=== PATIENT | male | born 1935 | race Caucasian/White ===

== ENCOUNTER 2017-07-23 07:14 | Emergency (ER) | payer MEDICARE, BC ==
[2017-07-23 07:24] VITALS: TEMP 97
[2017-07-23] MEDS ORDERED: DIPH,PERTUS(ACELL)TETVAC-LF 0.5 ML VIAL IM ONE (07:47)
--- NOTE | 2017-07-23 07:49 | ED ---
General Adult HPI - General Chief complaint: Fall Stated complaint: fall Time Seen by Provider: 07/23/17 07:20 Source: patient, RN notes reviewed Mode of arrival: wheelchair Limitations: no limitations - History of Present Illness Initial comments: This is an 81-year-old male who presents emergency department because he fell off the couch and hit his head on the corner of a dresser. Patient has a laceration to the posterior aspect of the scalp. Patient also is on Xarelto. Patient denies any loss of consciousness or any neck pain. Patient denies any numbness weakness. Patient denies any other injury at this time. Patient states he had his foot tangled up in the sheets. Caregiver states she was a little bit confused at first but that is not atypical for this patient. She states currently he is at his baseline. Patient denies any chest pain palpitations difficulty breathing or shortness of breath. - Related Data Allergies Allergy/AdvReac Type Severity Reaction Status Date / Time clarithromycin Allergy Swelling Verified 07/23/17 07:24 pregabalin [From Lyrica] Allergy Rash/Hives Verified 07/23/17 07:24 trichloroacetic acid Allergy Rash/Hives Verified 07/23/17 07:24 Review of Systems ROS Statement: Those systems with pertinent positive or pertinent negative responses have been documented in the HPI. ROS Other: All systems not noted in ROS Statement are negative. Past Medical History Past Medical History: Atrial Fibrillation, Dementia History of Any Multi-Drug Resistant Organisms: None Reported Past Surgical History: Hernia Repair Past Psychological History: No Psychological Hx Reported Smoking Status: Never smoker Past Alcohol Use History: None Reported Past Drug Use History: None Reported General Exam - General Exam Comments Initial Comments: GENERAL: Patient is well-developed and well-nourished. Patient is nontoxic and well- hydrated and is in mild distress. ENT: Neck is soft and supple. No significant lymphadenopathy is noted. Oropharynx is clear. Moist mucous membranes. Neck has full range of motion without eliciting any pain. EYES: The sclera were anicteric and conjunctiva were pink and moist. Extraocular movements were intact and pupils were equal round and reactive to light. Eyelids were unremarkable. PULMONARY: Unlabored respirations. Good breath sounds bilaterally. No audible rales rhonchi or wheezing was noted. CARDIOVASCULAR: There is a regular rate and rhythm without any murmurs gallops or rubs. ABDOMEN: Soft and nontender with normal bowel sounds. No palpable organomegaly was noted. There is no palpable pulsatile mass. SKIN: Patient has a laceration approximately 3/2 cm on the posterior aspect of his scalp a little more on the left than the right NEUROLOGIC: Patient is alert and oriented 2. Cranial nerves II through XII are grossly intact. Motor and sensory are also intact. Normal speech, volume and content. Symmetrical smile. MUSCULOSKELETAL: Normal extremities with adequate strength and full range of motion. LYMPHATICS: No significant lymphadenopathy is noted PSYCHIATRIC: Normal psychiatric evaluation. Normal interpersonal interactions appears functionally intact in deals appropriately with others. No signs of depression. No signs of anxiety. Limitations: no limitations Course Vital Signs 07/23/17 07/23/17 07:20 08:58 Temperature 97.0 F L Pulse Rate 78 68 Respiratory 18 18 Rate Blood Pressure 132/64 158/77 O2 Sat by Pulse 96 98 Oximetry Procedures - Laceration Laceration #1 Consent Obtained: verbal consent Indication: laceration Site: scalp Description: linear Depth: simple, single layer Anesthetic Used: lidocaine 1% Anesthesia Technique: local infiltration Pre-repair: wound explored Size of Sutures: other (I used 7 giselle to close the wound) Complications: pain Patient Tolerated Procedure: well Medical Decision Making - Medical Decision Making CT of the brain and C-spine showed no acute abnormality. Chest x-ray shows no acute abnormality. Disposition Clinical Impression: Fall, Scalp laceration, Head injury Disposition: HOME SELF-CARE Instructions: Head Injury (ED) Additional Instructions: Patient is to get the giselle removed in 7 days Referrals: Gurinder Partida MD [Primary Care Provider] - 1-2 days Time of Disposition: 10:05
--- NOTE | 2017-07-23 08:29 | CT ---
EXAMINATION TYPE: CT brain glen martinez DATE OF EXAM: 07/23/2017 COMPARISON: NONE HISTORY: Fall, head injury CT DLP: DLP brain 1017.9 and Cervical 351.7 mGycm Automated exposure control for dose reduction was used. TECHNIQUE: CT scan of the head and cervical spine are performed without contrast. FINDINGS: BRAIN: There are generalized changes of sulcal prominence and ventriculomegaly, compatible with atrop hic change. There is diffuse periventricular white matter lucency, compatible with chronic white benjy er ischemic change. There is a tiny 1.5 mm high-density lesion in the anterior aspect of the third ve ntricle at the level of the foramen of Monro on the right. This may represent a tiny colloid cyst. Th ere is no associated hydrocephalus. There is no mass effect, midline shift or intracranial blood. There is a 7.4 mm retention cyst or polyp involving the lateral aspect of the left maxillary sinus. T here is minimal mucoperiosteal disease involving the posterior ethmoid air cells on the left. No depr essed skull fracture is seen. IMPRESSION: 1. NO ACUTE INTRACRANIAL ABNORMALITY. 2. ATROPHIC CHANGE. 3. CHRONIC WHITE MATTER ISCHEMIC CHANGE. 4. I COULD NOT EXCLUDE A TINY COLLOID CYST IN THE ANTERIOR ASPECT OF THE THIRD VENTRICLE WITHOUT ASSO CIATED HYDROCEPHALUS. CERVICAL SPINE: There are emphysematous changes within the lungs. There is mild apical scarring prese nt bilaterally. There is some shotty cervical adenopathy. No pathologically enlarged lymph nodes are seen. There is mild spondylolisthesis of C5 on C6. Alignment is otherwise maintained. Atlantoaxial relation ships are normal. There is degenerative disc disease and hypertrophic spondylosis at C5-6 and C6-7. There is uncoverteb ral joint disease and facet arthropathy. No definite protrusion is seen. No fracture is identified. There is a small amount of subcutaneous emphysema over the left upper chest. A definite associated ri b fracture is not seen. IMPRESSION: 1. NO ACUTE OSSEOUS LESION. 2. DEGENERATIVE CHANGE. 3. TINY AMOUNT OF SUBCUTANEOUS EMPHYSEMA OVER THE LEFT UPPER CHEST.
[2017-07-23] MEDS ORDERED: LIDOCAINE/EPINEPHR/TETRACAINE 5 ML BOTTLE TOPICAL ONE (08:31)
--- NOTE | 2017-07-23 09:28 | XR ---
EXAMINATION TYPE: XR chest 2V DATE OF EXAM: 07/23/2017 HISTORY: Difficulty breathing . REFERENCE: Previous study dated 04/12/2013. FINDINGS: There has been a midline sternotomy and valvular replacement. Lung volumes are prominent. Heart size upper limits of normal. The lungs are clear. Pleural spaces ar e clear. IMPRESSION: 1. COPD. 2. BORDERLINE CARDIOMEGALY.
[2017-07-23 10:16] VITALS: BP 173/75; PULSE 70; RESP 16
== END 2017-07-23 10:16 | disposition home or self-care (01) ==
LOC: EC 07:14
DX: S01.01XA Laceration without foreign body of scalp, initial encounter (principal); I48.91 Unspecified atrial fibrillation; Z23 Encounter for immunization; Z88.1 Allergy status to other antibiotic agents; Z88.8 Allergy status to other drugs, medicaments and biological substances; Z79.01 Long term (current) use of anticoagulants; W08.XXXA Fall from other furniture, initial encounter
CPT/HCPCS: 12001; 70450; 71020; 72125; 90471; 90715; 99283

== ENCOUNTER 2018-11-29 21:54 | Inpatient (IN) | payer BC, MEDICARE ==
[2018-11-29] MEDS ORDERED: SODIUM CHLORIDE 0.9% 500 ML 500 ML IV ONE (22:41)
--- NOTE | 2018-11-29 22:58 | XR ---
EXAMINATION TYPE: XR chest 2V DATE OF EXAM: 11/29/2018 COMPARISON: 07/23/2017 HISTORY: Dementia TECHNIQUE: Frontal and lateral views of the chest are obtained. FINDINGS: There is no heart failure nor confluent pneumonic infiltrate. Thoracic aorta is atheromato us. There are sternal wires. There are chest leads. There is cardiac valve prosthesis. Bony thorax is intact. There is some linear density at the left cardiac border. There are small linear density at t he right lung base. IMPRESSION: Bilateral patchy atelectasis is new compared to last exam. No heart failure.
[2018-11-29 22:59] LABS: Basophils % (A) 0 %; Eosinophils % (A) 0 %; Lymphocytes # (A) 0.8 k/uL (1.0-4.8); Lymphocytes % (A) 9 %; MCH 32.8 pg (25.0-35.0); MCHC 31.7 g/dL (31.0-37.0); MCV 103.6 fL (80.0-100.0); Macrocytosis Slight; Mean Platelet Volume 7.4; Monocytes # (A) 0.8 k/uL (0-1.0); Monocytes % (A) 9 %; Neutrophils # (A) 6.9 k/uL (1.3-7.7); Neutrophils % (A) 79 %; Platelet Count 216 k/uL (150-450); RBC 3.96 m/uL (4.30-5.90); RDW 13.3 % (11.5-15.5); WBC 8.6 k/uL (3.8-10.6)
[2018-11-29 23:05] LABS: Albumin 3.7 g/dL (3.5-5.0); Calcium 9.2 mg/dL (8.4-10.2); Potassium 4.3 mmol/L (3.5-5.1); Total Bilirubin 0.7 mg/dL (0.2-1.3); Total Protein 6.6 g/dL (6.3-8.2)
[2018-11-29 23:06] LABS: INR 0.9 (<1.2); Partial Thromboplastin Time 23.8 sec (22.0-30.0); Prothrombin Time 10.1 sec (9.0-12.0)
[2018-11-29 23:08] LABS: Glucose,Whole Blood 130 mg/dL (75-99)
--- NOTE | 2018-11-29 23:24 | ED ---
Altered Mental Status HPI - General Chief Complaint: Altered Mental Status Stated Complaint: Altered Mental Status Time Seen by Provider: 11/29/18 22:39 Source: patient, EMS, Caregiver Mode of arrival: EMS Limitations: altered mental status - History of Present Illness Initial Comments: This patient is an 83-year-old man who comes to be evaluated for altered mental status. The patient is not able to give any history. The history I obtained is from the caregiver, who states that for the past day the patient has not been acting like his usual self. She states that at baseline, he is demented, and is resistant to staff at the home dressing him. The caregiver states that he is usually "combative." She states that today he has just been sitting and did not resist when they attempted to dress him. He was sleeping more. The patient was not giving any complaints, but they state that he is not very verbal at baseline. MD Complaint: altered mental status, decreased responsiveness Onset/Timin -: days(s) Consistency of Symptoms: constant - Related Data Home Medications Medication Instructions Recorded Confirmed ALPRAZolam [Xanax] 0.5 mg PO BID@1200,1700 11/29/18 11/29/18 Furosemide [Lasix] 20 mg PO DAILY@0800 11/29/18 11/29/18 QUEtiapine [SEROquel] 100 mg PO HS@1700 11/29/18 11/29/18 Rivaroxaban [Xarelto] 20 mg PO DAILY@0800 11/29/18 11/29/18 Sertraline [Zoloft] 25 mg PO DAILY@0800 11/29/18 11/29/18 risperiDONE [RisperDAL] 5 mg PO BID@0800,1700 11/29/18 11/29/18 traZODone HCL [Desyrel] 200 mg PO HS@1700 11/29/18 11/29/18 Allergies Allergy/AdvReac Type Severity Reaction Status Date / Time clarithromycin Allergy Swelling Verified 11/29/18 22:05 pregabalin [From Lyrica] Allergy Rash/Hives Verified 11/29/18 22:05 trichloroacetic acid Allergy Rash/Hives Verified 11/29/18 22:05 Review of Systems ROS Statement: Those systems with pertinent positive or pertinent negative responses have been documented in the HPI. ROS Other: All systems not noted in ROS Statement are negative. Limitations: ROS unobtainable due to patients medical condition Past Medical History Past Medical History: Atrial Fibrillation, Dementia History of Any Multi-Drug Resistant Organisms: None Reported Past Surgical History: Hernia Repair Past Psychological History: No Psychological Hx Reported Smoking Status: Never smoker Past Alcohol Use History: None Reported Past Drug Use History: None Reported General Exam Limitations: altered mental status General appearance: alert Head exam: Present: atraumatic, normocephalic Eye exam: Present: PERRL ENT exam: Present: mucous membranes dry Neck exam: Present: normal inspection, full ROM. Absent: tenderness Respiratory exam: Present: rhonchi. Absent: respiratory distress, wheezes, rales, stridor, chest wall tenderness, accessory muscle use, decreased breath sounds, prolonged expiratory Cardiovascular Exam: Present: regular rate, normal rhythm, normal heart sounds. Absent: systolic murmur, diastolic murmur, rubs, gallop GI/Abdominal exam: Present: soft, tenderness (There is some mild generalized tenderness without rebound or guarding), diminished bowel sounds. Absent: distended, guarding, rebound, rigid, mass Extremities exam: Present: normal inspection, normal capillary refill. Absent: pedal edema, calf tenderness Back exam: Present: normal inspection. Absent: CVA tenderness (R), CVA tenderness (L) Neurological exam: Present: alert, other (Patient is not cooperative with the neurologic exam, however there is no obvious focal deficit. The patient does appear to be moving 4 extremities.) Skin exam: Present: warm, dry, intact, normal color. Absent: rash Course Vital Signs 11/29/18 11/29/18 11/30/18 21:56 23:32 00:00 Temperature 98.2 F 98.5 F Pulse Rate 89 65 90 Respiratory 22 18 18 Rate Blood Pressure 124/73 114/66 135/73 O2 Sat by Pulse 98 97 97 Oximetry 11/30/18 11/30/18 02:00 03:00 Temperature 98.3 F 98.3 F Pulse Rate 85 76 Respiratory 20 18 Rate Blood Pressure 135/73 133/70 O2 Sat by Pulse 97 97 Oximetry Medical Decision Making - Lab Data Result diagrams: 11/29/18 22:18 11/29/18 22:18 Lab Results 11/29/18 11/29/18 11/29/18 Range/Units 22:18 22:18 22:18 WBC 8.6 (3.8-10.6) k/uL RBC 3.96 L (4.30-5.90) m/uL Hgb 13.0 (13.0-17.5) gm/dL Hct 41.0 (39.0-53.0) % MCV 103.6 H (80.0-100.0) fL MCH 32.8 (25.0-35.0) pg MCHC 31.7 (31.0-37.0) g/dL RDW 13.3 (11.5-15.5) % Plt Count 216 (150-450) k/uL Neutrophils % 79 % Lymphocytes % 9 % Monocytes % 9 % Eosinophils % 0 % Basophils % 0 % Neutrophils # 6.9 (1.3-7.7) k/uL Lymphocytes # 0.8 L (1.0-4.8) k/uL Monocytes # 0.8 (0-1.0) k/uL Eosinophils # 0.0 (0-0.7) k/uL Basophils # 0.0 (0-0.2) k/uL Macrocytosis Slight PT (9.0-12.0) sec INR (<1.2) APTT (22.0-30.0) sec Sodium 141 (137-145) mmol/L Potassium 4.3 (3.5-5.1) mmol/L Chloride 105 (98-107) mmol/L Carbon Dioxide 29 (22-30) mmol/L Anion Gap 7 mmol/L BUN 23 H (9-20) mg/dL Creatinine 1.31 H (0.66-1.25) mg/dL Est GFR (CKD-EPI)AfAm 58 (>60 ml/min/1.73 sqM) Est GFR (CKD-EPI)NonAf 51 (>60 ml/min/1.73 sqM) Glucose 136 H (74-99) mg/dL POC Glucose (mg/dL) (75-99) mg/dL POC Glu Firmware Manager ID Plasma Lactic Acid Scotty (0.7-2.0) mmol/L Calcium 9.2 (8.4-10.2) mg/dL Total Bilirubin 0.7 (0.2-1.3) mg/dL AST 24 (17-59) U/L ALT 20 L (21-72) U/L Alkaline Phosphatase 65 (38-126) U/L Total Creatine Kinase 197 H (55-170) U/L CK-MB (CK-2) 2.2 (0.0-2.4) ng/mL CK-MB (CK-2) Rel Index 1.1 Troponin I 0.016 (0.000-0.034) ng/mL Total Protein 6.6 (6.3-8.2) g/dL Albumin 3.7 (3.5-5.0) g/dL Urine Color Urine Appearance (Clear) Urine pH (5.0-8.0) Ur Specific Holstein (1.001-1.035) Urine Protein (Negative) Urine Glucose (UA) (Negative) Urine Ketones (Negative) Urine Blood (Negative) Urine Nitrite (Negative) Urine Bilirubin (Negative) Urine Urobilinogen (<2.0) mg/dL Ur Leukocyte Esterase (Negative) Urine Opiates Screen (NotDetected) Ur Oxycodone Screen (NotDetected) Urine Methadone Screen (NotDetected) Ur Propoxyphene Screen (NotDetected) Ur Barbiturates Screen (NotDetected) U Tricyclic Antidepress (NotDetected) Ur Phencyclidine Scrn (NotDetected) Ur Amphetamines Screen (NotDetected) U Methamphetamines Scrn (NotDetected) U Benzodiazepines Scrn (NotDetected) Urine Cocaine Screen (NotDetected) U Marijuana (THC) Screen (NotDetected) 11/29/18 11/29/18 11/29/18 Range/Units 22:18 22:58 23:12 WBC (3.8-10.6) k/uL RBC (4.30-5.90) m/uL Hgb (13.0-17.5) gm/dL Hct (39.0-53.0) % MCV (80.0-100.0) fL MCH (25.0-35.0) pg MCHC (31.0-37.0) g/dL RDW (11.5-15.5) % Plt Count (150-450) k/uL Neutrophils % % Lymphocytes % % Monocytes % % Eosinophils % % Basophils % % Neutrophils # (1.3-7.7) k/uL Lymphocytes # (1.0-4.8) k/uL Monocytes # (0-1.0) k/uL Eosinophils # (0-0.7) k/uL Basophils # (0-0.2) k/uL Macrocytosis PT 10.1 (9.0-12.0) sec INR 0.9 (<1.2) APTT 23.8 (22.0-30.0) sec Sodium (137-145) mmol/L Potassium (3.5-5.1) mmol/L Chloride (98-107) mmol/L Carbon Dioxide (22-30) mmol/L Anion Gap mmol/L BUN (9-20) mg/dL Creatinine (0.66-1.25) mg/dL Est GFR (CKD-EPI)AfAm (>60 ml/min/1.73 sqM) Est GFR (CKD-EPI)NonAf (>60 ml/min/1.73 sqM) Glucose (74-99) mg/dL POC Glucose (mg/dL) 130 H (75-99) mg/dL POC Glu Firmware Manager ID Jose Garcia Plasma Lactic Acid Scotty (0.7-2.0) mmol/L Calcium (8.4-10.2) mg/dL Total Bilirubin (0.2-1.3) mg/dL AST (17-59) U/L ALT (21-72) U/L Alkaline Phosphatase (38-126) U/L Total Creatine Kinase (55-170) U/L CK-MB (CK-2) (0.0-2.4) ng/mL CK-MB (CK-2) Rel Index Troponin I (0.000-0.034) ng/mL Total Protein (6.3-8.2) g/dL Albumin (3.5-5.0) g/dL Urine Color Urine Appearance (Clear) Urine pH (5.0-8.0) Ur Specific Holstein (1.001-1.035) Urine Protein (Negative) Urine Glucose (UA) (Negative) Urine Ketones (Negative) Urine Blood (Negative) Urine Nitrite (Negative) Urine Bilirubin (Negative) Urine Urobilinogen (<2.0) mg/dL Ur Leukocyte Esterase (Negative) Urine Opiates Screen Not Detected (NotDetected) Ur Oxycodone Screen Not Detected (NotDetected) Urine Methadone Screen Not Detected (NotDetected) Ur Propoxyphene Screen Not Detected (NotDetected) Ur Barbiturates Screen Not Detected (NotDetected) U Tricyclic Antidepress Detected H (NotDetected) Ur Phencyclidine Scrn Not Detected (NotDetected) Ur Amphetamines Screen Not Detected (NotDetected) U Methamphetamines Scrn Not Detected (NotDetected) U Benzodiazepines Scrn Detected H (NotDetected) Urine Cocaine Screen Not Detected (NotDetected) U Marijuana (THC) Screen Not Detected (NotDetected) 11/29/18 11/29/18 Range/Units 23:12 23:12 WBC (3.8-10.6) k/uL RBC (4.30-5.90) m/uL Hgb (13.0-17.5) gm/dL Hct (39.0-53.0) % MCV (80.0-100.0) fL MCH (25.0-35.0) pg MCHC (31.0-37.0) g/dL RDW (11.5-15.5) % Plt Count (150-450) k/uL Neutrophils % % Lymphocytes % % Monocytes % % Eosinophils % % Basophils % % Neutrophils # (1.3-7.7) k/uL Lymphocytes # (1.0-4.8) k/uL Monocytes # (0-1.0) k/uL Eosinophils # (0-0.7) k/uL Basophils # (0-0.2) k/uL Macrocytosis PT (9.0-12.0) sec INR (<1.2) APTT (22.0-30.0) sec Sodium (137-145) mmol/L Potassium (3.5-5.1) mmol/L Chloride (98-107) mmol/L Carbon Dioxide (22-30) mmol/L Anion Gap mmol/L BUN (9-20) mg/dL Creatinine (0.66-1.25) mg/dL Est GFR (CKD-EPI)AfAm (>60 ml/min/1.73 sqM) Est GFR (CKD-EPI)NonAf (>60 ml/min/1.73 sqM) Glucose (74-99) mg/dL POC Glucose (mg/dL) (75-99) mg/dL POC Glu Firmware Manager ID Plasma Lactic Acid Scotty 1.8 (0.7-2.0) mmol/L Calcium (8.4-10.2) mg/dL Total Bilirubin (0.2-1.3) mg/dL AST (17-59) U/L ALT (21-72) U/L Alkaline Phosphatase (38-126) U/L Total Creatine Kinase (55-170) U/L CK-MB (CK-2) (0.0-2.4) ng/mL CK-MB (CK-2) Rel Index Troponin I (0.000-0.034) ng/mL Total Protein (6.3-8.2) g/dL Albumin (3.5-5.0) g/dL Urine Color Yellow Urine Appearance Clear (Clear) Urine pH 5.5 (5.0-8.0) Ur Specific Holstein 1.019 (1.001-1.035) Urine Protein Trace H (Negative) Urine Glucose (UA) Negative (Negative) Urine Ketones Negative (Negative) Urine Blood Negative (Negative) Urine Nitrite Negative (Negative) Urine Bilirubin Negative (Negative) Urine Urobilinogen <2.0 (<2.0) mg/dL Ur Leukocyte Esterase Negative (Negative) Urine Opiates Screen (NotDetected) Ur Oxycodone Screen (NotDetected) Urine Methadone Screen (NotDetected) Ur Propoxyphene Screen (NotDetected) Ur Barbiturates Screen (NotDetected) U Tricyclic Antidepress (NotDetected) Ur Phencyclidine Scrn (NotDetected) Ur Amphetamines Screen (NotDetected) U Methamphetamines Scrn (NotDetected) U Benzodiazepines Scrn (NotDetected) Urine Cocaine Screen (NotDetected) U Marijuana (THC) Screen (NotDetected) - EKG Data -: EKG Interpreted by Ny EKG shows normal: sinus rhythm, axis (Normal), intervals (Normal), QRS complexes (Normal), ST-T waves (Normal) Rate: normal (Rate 91 bpm) Interpretation: normal EKG Disposition Clinical Impression: Altered mental status Disposition: ADMITTED IP TO THIS [facility] Condition: Fair Referrals: Goran Dubois MD [Primary Care Provider] - 1-2 days
[2018-11-29 23:27] LABS: Creatine Kinase MB 2.2 ng/mL (0.0-2.4); Troponin I 0.016 ng/mL (0.000-0.034)
[2018-11-29 23:40] LABS: Appearance,Urine Clear (Clear); Bilirubin,Urine Negative (Negative); Blood,Urine Negative (Negative); Color,Urine Yellow; Glucose,Urine (UA) Negative (Negative); Ketones,Urine Negative (Negative); Leukocyte Esterase,Urine Negative (Negative); Nitrite,Urine Negative (Negative); PH, Urine 5.5 (5.0-8.0); Protein,Urine Trace (Negative); Specific Gravity,Urine 1.019 (1.001-1.035); Urobilinogen,Urine <2.0 mg/dL (<2.0)
[2018-11-29 23:54] LABS: Amphetamine Screen,Urine Not Detected (NotDetected); Cocaine Screen,Urine Not Detected (NotDetected); Opiate Screen,Urine Not Detected (NotDetected); Phencyclidine Screen,Urine Not Detected (NotDetected); Urn Cannabinoid Scrn Not Detected (NotDetected)
[2018-11-29 23:55] LABS: Barbiturate Screen,Urine Not Detected (NotDetected); Benzodiazepines Screen,Urine Detected (NotDetected); Methadone Screen, Urine Not Detected (NotDetected); Oxycodone Screen, Urine Not Detected (NotDetected); Tricyclic Antidepressant,Urine Detected (NotDetected)
--- NOTE | 2018-11-30 00:44 | CT ---
EXAMINATION TYPE: CT brain wo con DATE OF EXAM: 11/30/2018 COMPARISON: 07/23/2017 HISTORY: AMS CT DLP: 2088.4 mGycm Automated exposure control for dose reduction was used. FINDINGS: There is diffuse cerebral cortical atrophy. There is no mass effect nor midline shift. There is no si gn of intracranial hemorrhage. There is mild enlargement of the ventricles. The calvarium is intact. IMPRESSION: CEREBRAL ATROPHY. NO ACUTE INTRACRANIAL ABNORMALITY. MILD HYDROCEPHALUS. NO CHANGE COMPARED TO OLD EX AM.
--- NOTE | 2018-11-30 00:55 | CT ---
EXAMINATION TYPE: CT abdomen pelvis wo con DATE OF EXAM: 11/30/2018 COMPARISON: None HISTORY: abdominal pain CT DLP: 626.1 mGycm Automated exposure control for dose reduction was used. TECHNIQUE: Helical acquisition of images was performed from the lung bases through the pelvis. FINDINGS: There is some interstitial density at the lung bases consistent with scarring and subsegmental atelec tasis. There is no pleural effusion. There is no pericardial effusion. Gallbladder appears normal. Liver shows no focal defect. Spleen appears normal. There is no pancreati c mass. There are numerous bilateral renal parapelvic cysts. Ureters are not dilated. Abdominal aorta is atheromatous. There is no retroperitoneal adenopathy. Bladder distends smoothly. Prostate is enlarged and measures 5.5 cm. There is no inguinal hernia. The re is no free fluid in the pelvis. There is no sign of free air. There is no evidence of a bowel obst ruction. I see no mesenteric edema or adenopathy. There is a minimal L5-S1 spondylolisthesis with L5 spondylolysis. There is multilevel degenerative disc change in the lumbar spine. There is no compress ion fracture. There is no evidence of free air. IMPRESSION: SCARRING AND SUBSEGMENTAL ATELECTASIS AT THE LUNG BASES. ATHEROSCLEROTIC VASCULAR DISEASE. NO ACUTE A BNORMALITY SEEN WITHIN THE ABDOMEN AND PELVIS. LUMBAR SPONDYLOTIC CHANGES AND L5-S1 SPONDYLOLISTHESIS . THERE IS FACET ARTHROPATHY AND SPUR FORMATION WITH SOME SPINAL STENOSIS AT L3-4.
[2018-11-30] MEDS ORDERED: LEVOFLOXACIN 750 MG TAB PO STA (02:38)
[2018-11-30] MEDS ORDERED: NALOXONE 0.4 MG/ML 1 ML VIAL IV PRN (03:25)
[2018-11-30] MEDS: SODIUM CHLORIDE 0.9% 1,000 ML IV SCH ×2 (04:04→14:58)
[2018-11-30 04:25] VITALS: BMI 22.8
[2018-11-30] MEDS ORDERED: IPRATROPIUM-ALBUTEROL 3 ML NEB INHALATION PRN ×2 (18:16→22:49)
[2018-11-30] MEDS ORDERED: IPRATROPIUM-ALBUTEROL 3 ML NEB INHALATION SCH (20:00)
--- NOTE | 2018-11-30 20:37 | HP ---
HISTORY AND PHYSICAL I am covering for Dr. Dubois. CHIEF COMPLAINT: Change in mental status. HISTORY OF PRESENT ILLNESS: This 83-year-old gentleman with a past medical history of multiple medical problems, including atrial fibrillation, dementia, is living in an [facility] home. Apparently the patient had some change in mental status and the caregiver reported that the patient was not acting his usual self. At baseline this patient has dementia, but the patient is resistant being dressed and usually is combative. Currently the patient was just sitting and not resisting, so the staff was concerned and the patient was taken to [facility] and admitted for further evaluation and treatment. Chest x-ray showed some atelectasis/possible pneumonia. The patient was admitted for evaluation and treatment. His creatinine was found to be 1.31, indicating chronic kidney disease, stage III. There is no history of trauma. A detailed history cannot be taken from the patient, as mentioned earlier. Most of the history is taken from discussion with staff and review of the chart and discussion with the ER physician. PAST MEDICAL HISTORY: 1. History of atrial fibrillation. 2. Dementia. HOME MEDICATIONS: 1. Trazodone 200 mg p.o. at bedtime. 2. Risperdal 0.5 mg p.o. b.i.d. 3. Zoloft 25 mg p.o. daily. 4. Xarelto 20 mg p.o. daily. 5. Seroquel 100 mg at bedtime. 6. Lasix 20 mg p.o. daily. 7. Xanax 0.5 mg b.i.d. ALLERGIES: 1. CLARITHROMYCIN. 2. LYRICA. 3. TRICHLOROACETIC ACID. Family history, social history, review of systems could not be taken because of the change in mental status. No history of smoking per chart. PHYSICAL EXAMINATION: Patient is conscious, confused, nonverbal. Pulse is 63, blood pressure 179/87, respiration 12, temperature 98.3, pulse ox 94% on room air. HEENT: Conjunctivae normal. Oral mucosa moist. NECK: No jugular venous distention. No carotid bruit. No lymph node enlargement. CARDIOVASCULAR SYSTEM: S1, S2 muffled. RESPIRATORY SYSTEM: Breath sounds diminished at the bases. A few scattered rhonchi and crackles. ABDOMEN: Soft. Non-tender. No mass palpable. LEGS: No edema. No swelling. NERVOUS SYSTEM: Diffusely weak. JOINTS: No active deforming arthropathy. SKIN: No ulcer, rash, bleeding. LABS AT THIS TIME: WBC 8.6, hemoglobin 13, sodium 141, potassium 4.3, creatinine 1.31. ASSESSMENT: 1. Change in mental status with possible acute bilateral pneumonia, community-acquire, with acute on chronic metabolic encephalopathy. 2. History of dementia. 3. Increased creatinine with chronic kidney disease, stage III. 4. Atrial fibrillation. 5. History of hernia repair. 6. FULL CODE. RECOMMENDATIONS AND DISCUSSION: In this 83-year-old gentleman who presented with multiple complex medical issues, we will monitor the patient closely, continue the current management, continue with symptomatic treatment. I recommend broad-spectrum antibiotics, pulmonary consultation, bronchodilators. Resume the home medications. Prognosis is guarded because of multiple complex medical issues. Further recommendations to follow. Patient is FULL CODE at this time. A copy of this dictation is being forwarded to Dr. Dubois, who is the primary physician. MMODL / IJN: [id number] /
[2018-11-30] MEDS ORDERED: LEVOFLOXACIN 500MG-D5W PMX 500 MG in DEXTROSE/WATER 1 100ML.BAG IVPB SCH (21:00)
[2018-12-01] MEDS: SODIUM CHLORIDE 0.9% 1,000 ML IV SCH ×2 (01:27→09:48)
[2018-12-01] MEDS: IPRATROPIUM-ALBUTEROL 3 ML NEB INHALATION SCH ×3 (05:20→19:17)
[2018-12-01 07:52] LABS: Basophils % (A) 0 %; Eosinophils % (A) 1 %; HCT 39.3 % (39.0-53.0); HGB 12.3 gm/dL (13.0-17.5); Lymphocytes # (A) 0.8 k/uL (1.0-4.8); Lymphocytes % (A) 10 %; MCH 32.4 pg (25.0-35.0); MCHC 31.4 g/dL (31.0-37.0); MCV 103.2 fL (80.0-100.0); Macrocytosis Slight; Mean Platelet Volume 7.4; Monocytes # (A) 0.7 k/uL (0-1.0); Monocytes % (A) 10 %; Neutrophils # (A) 5.6 k/uL (1.3-7.7); Neutrophils % (A) 76 %; Platelet Count 210 k/uL (150-450); RBC 3.81 m/uL (4.30-5.90); RDW 13.1 % (11.5-15.5); WBC 7.4 k/uL (3.8-10.6)
[2018-12-01 08:02] LABS: Anion Gap 7 mmol/L; Blood Urea Nitrogen 16 mg/dL (9-20); Calcium 8.7 mg/dL (8.4-10.2); Carbon Dioxide 25 mmol/L (22-30); Chloride 108 mmol/L (98-107); Glucose 93 mg/dL (74-99); Potassium 4.4 mmol/L (3.5-5.1); Sodium 140 mmol/L (137-145)
[2018-12-01] MEDS: risperiDONE 2 MG TAB PO SCH ×3 (12:41→16:50)
[2018-12-01] MEDS: FUROSEMIDE 20 MG TAB PO SCH (12:43)
[2018-12-01] MEDS: SERTRALINE 25 MG TAB PO SCH (12:43)
[2018-12-01] MEDS: ALPRAZolam 0.5 MG TAB PO SCH ×2 (12:43→16:50)
[2018-12-01] MEDS: RIVAROXABAN 20 MG TAB PO SCH (12:43)
--- NOTE | 2018-12-01 15:16 | P.CNPUL ---
History of Present Illness Consult date: 12/01/18 Reason for consult: dyspnea, cough, pneumonia Chief complaint: Altered mental status confusion History of present illness: 83-year-old male who was seen evaluated examined on medical floor, she has been admitted to hospital with altered mental status unable to obtain it a history from the patient most of the data has been obtained from the chart, as per caregiver patient has not been feeling well was more confused with intermittent agitation and anxiety which is more than usual, patient has been admitted to Hospital for workup of altered mental status patient appeared to be dehydrated on arrival noted to have BUN/creatinine 23 and 1.31 of her renal functions have improved with gentle rehydration, chest x-ray suggestive bilateral patchy infiltrate the basis likely pneumonia computed tomography scan of the abdominal and pelvis failed to reveal any significant pathology except some BPH and lumbosacral spinal disease, computed tomography scan of the head is unremarkable Review of Systems ROS unobtainable: due to mental status All systems: negative Past Medical History Past Medical History: Atrial Fibrillation, Dementia History of Any Multi-Drug Resistant Organisms: None Reported Past Surgical History: Hernia Repair Past Anesthesia/Blood Transfusion Reactions: Unable to Obtain Past Psychological History: No Psychological Hx Reported Smoking Status: Never smoker Past Alcohol Use History: None Reported Past Drug Use History: None Reported Medications and Allergies Home Medications Medication Instructions Recorded Confirmed Type ALPRAZolam [Xanax] 0.5 mg PO BID@1200,1700 11/29/18 11/29/18 History Furosemide [Lasix] 20 mg PO DAILY@0800 11/29/18 11/29/18 History QUEtiapine [SEROquel] 100 mg PO HS@1700 11/29/18 11/29/18 History Rivaroxaban [Xarelto] 20 mg PO DAILY@0800 11/29/18 11/29/18 History Sertraline [Zoloft] 25 mg PO DAILY@0800 11/29/18 11/29/18 History risperiDONE [RisperDAL] 5 mg PO BID@0800,1700 11/29/18 11/29/18 History traZODone HCL [Desyrel] 200 mg PO HS@1700 11/29/18 11/29/18 History Allergies Allergy/AdvReac Type Severity Reaction Status Date / Time clarithromycin Allergy Swelling Verified 11/29/18 22:05 pregabalin [From Lyrica] Allergy Rash/Hives Verified 11/29/18 22:05 trichloroacetic acid Allergy Rash/Hives Verified 11/29/18 22:05 Physical Exam Vitals: Vital Signs Temp Pulse Pulse Resp BP Pulse Ox 12/01/18 14:27 98.7 F 80 14 157/68 97 12/01/18 12:30 80 16 12/01/18 12:25 82 16 12/01/18 07:20 98.4 F 73 14 130/70 97 12/01/18 05:29 80 12/01/18 05:20 80 11/30/18 23:00 99.0 F 90 18 170/79 98 11/30/18 20:44 99.2 F 86 16 176/83 97 Intake and Output 12/01/18 12/01/18 12/01/18 06:59 14:59 22:59 Intake Total 600 Balance 600 Intake: Intake, IV Titration 600 Amount Sodium Chloride 0.9% 1, 600 000 ml @ 75 mls/hr IV . [id number] [facility] Rx#:[id number] Other: Voiding Method Diaper Incontinent # Voids 1 2 Limitations: altered mental status General appearance: alert Head exam: Present: atraumatic, normocephalic Eye exam: Present: PERRL ENT exam: Present: mucous membranes dry Neck exam: Present: normal inspection, full ROM. Absent: tenderness Respiratory exam: Present: rhonchi. Absent: respiratory distress, wheezes, rales, stridor, chest wall tenderness, accessory muscle use, decreased breath sounds, prolonged expiratory Cardiovascular Exam: Present: regular rate, normal rhythm, normal heart sounds. Absent: systolic murmur, diastolic murmur, rubs, gallop GI/Abdominal exam: Present: soft, tenderness (There is some mild generalized tenderness without rebound or guarding), diminished bowel sounds. Absent: distended, guarding, rebound, rigid, mass Extremities exam: Present: normal inspection, normal capillary refill. Absent: pedal edema, calf tenderness Back exam: Present: normal inspection. Absent: CVA tenderness (R), CVA tenderness (L) Neurological exam: Present: alert, other (Patient is not cooperative with the neurologic exam, however there is no obvious focal deficit. The patient does appear to be moving 4 extremities.) Skin exam: Present: warm, dry, intact, normal color. Absent: rash Results - Laboratory Findings CBC and BMP: 12/01/18 07:05 12/01/18 07:05 PT/INR, D-dimer PT 10.1 sec (9.0-12.0) 11/29/18 22:18 INR 0.9 (<1.2) 11/29/18 22:18 Abnormal lab findings: Abnormal Labs 11/29/18 11/29/18 11/29/18 22:18 22:18 22:18 RBC 3.96 L Hgb MCV 103.6 H Lymphocytes # 0.8 L Chloride BUN 23 H Creatinine 1.31 H Glucose 136 H POC Glucose (mg/dL) ALT 20 L Total Creatine Kinase 197 H Urine Protein U Tricyclic Antidepress U Benzodiazepines Scrn 11/29/18 11/29/18 11/29/18 22:58 23:12 23:12 RBC Hgb MCV Lymphocytes # Chloride BUN Creatinine Glucose POC Glucose (mg/dL) 130 H ALT Total Creatine Kinase Urine Protein Trace H U Tricyclic Antidepress Detected H U Benzodiazepines Scrn Detected H 12/01/18 12/01/18 07:05 07:05 RBC 3.81 L Hgb 12.3 L MCV 103.2 H Lymphocytes # 0.8 L Chloride 108 H BUN Creatinine Glucose POC Glucose (mg/dL) ALT Total Creatine Kinase Urine Protein U Tricyclic Antidepress U Benzodiazepines Scrn - Diagnostic Findings Chest x-ray: report reviewed, image reviewed Assessment and Plan Assessment: Altered mental status with agitated behavior Bilateral basal pneumonia Metabolic encephalopathy Drug vascular volume depletion and dehydration Chronic dementia and is I'm is disease Chronic atrial fibrillation Plan: Broad-spectrum antibiotics Gentle rehydration Fall precautions Follow clinical course closely further recommendations pending plan of care as per clinical response of the patient We'll send urine for culture as well Time with Patient: Greater than 30
[2018-12-01] MEDS: QUEtiapine 100 MG TAB PO SCH (16:50)
[2018-12-01] MEDS: traZODone HCL 100 MG TAB PO SCH (16:50)
--- NOTE | 2018-12-01 17:55 | P.PN ---
Subjective Progress Note Date: 12/01/18 Progress note being dictated for Dr. Pace. Interval history: This is an 83-year-old male resident of an [facility], admitted with possible acute bilateral pneumonia, acute on chronic metabolic encephalopathy, acute on chronic renal failure in a patient with history of dementia and multiple other medical issues. Maintained on broad-spectrum IV antibiotics, nebulized bronchodilators. Afebrile, T-max 99.2, normal WBC. Gentle IV fluid hydration with renal function improving. Objective - Vital Signs Vital signs: Vital Signs Temp 98.7 F 12/01/18 14:27 Pulse 80 12/01/18 14:27 Resp 14 12/01/18 14:27 BP 157/68 12/01/18 14:27 Pulse Ox 97 12/01/18 14:27 Intake & Output 11/30/18 12/01/18 12/01/18 18:59 06:59 18:59 Intake Total 800 600 Balance 800 600 Intake: Intake, IV Titration 800 600 Amount Sodium Chloride 0.9% 1, 800 600 000 ml @ 75 mls/hr IV . [id number] [facility] Rx#:[id number] Other: Voiding Method Incontinent Diaper Diaper Incontinent Incontinent # Voids 1 1 2 - Exam PHYSICAL EXAM: VITAL SIGNS: As above GENERAL: Lying in bed, appears comfortable with no acute distress, confused, cooperative HEENT: Conjunctivae normal. eyes normal. NECK: No JVD. No thyroid enlargement. No LNs CARDIOVASCULAR: S1, S2 muffled. No murmur RESPIRATION: Breath sounds diminished in the bases. Occasional scattered rhonchi and crackles. ABDOMEN: Soft, nontender . No guarding. no masses palpable.Bowel sounds heard. LEGS: No edema. no swelling PSYCHIATRY: Alert and oriented -3, mood and affect normal. NERVOUS SYSTEM: Moves all 4 limbs. Diffuse weakness No focal deficits. Skin: no rash - Labs CBC & Chem 7: 12/01/18 07:05 12/01/18 07:05 Labs: Abnormal Lab Results - Last 24 Hours (Table) 12/01/18 12/01/18 Range/Units 07:05 07:05 RBC 3.81 L (4.30-5.90) m/uL Hgb 12.3 L (13.0-17.5) gm/dL MCV 103.2 H (80.0-100.0) fL Lymphocytes # 0.8 L (1.0-4.8) k/uL Chloride 108 H (98-107) mmol/L Assessment and Plan Assessment: -Change in mental status with acute bilateral pneumonia, community-acquired with acute on chronic metabolic encephalopathy -Chronic dementia, type unknown -Acute on chronic kidney disease, stage III, improving. -Chronic atrial fibrillation - Plan: Continue current medication regime ,monitoring and symptomatic treatment. Urine culture ordered. Continue on IV antibiotics, gentle IV fluid hydration. Assist with all meals. Follow closely with pulmonary. Further recommendations to follow. The impression and plan of care has been dictated as directed. : I performed a history and examination of this patient, discussed the same with the dictator. I agree with the dictator's note ,documented as a scribe. Any additional findings or plans will be noted.
[2018-12-01] MEDS ORDERED: LEVOFLOXACIN 500 MG TAB PO SCH (21:00)
[2018-12-02] MEDS: SODIUM CHLORIDE 0.9% 1,000 ML IV SCH ×2 (03:49→16:43)
[2018-12-02] MEDS: IPRATROPIUM-ALBUTEROL 3 ML NEB INHALATION SCH ×4 (07:56→18:58)
[2018-12-02 08:33] LABS: Basophils % (A) 0 %; Eosinophils % (A) 0 %; HCT 43.9 % (39.0-53.0); HGB 13.7 gm/dL (13.0-17.5); Lymphocytes # (A) 0.4 k/uL (1.0-4.8); Lymphocytes % (A) 3 %; MCH 32.1 pg (25.0-35.0); MCHC 31.2 g/dL (31.0-37.0); MCV 102.7 fL (80.0-100.0); Macrocytosis Slight; Mean Platelet Volume 7.2; Monocytes # (A) 0.6 k/uL (0-1.0); Monocytes % (A) 5 %; Neutrophils # (A) 10.7 k/uL (1.3-7.7); Neutrophils % (A) 91 %; Platelet Count 246 k/uL (150-450); RBC 4.28 m/uL (4.30-5.90); RDW 13.1 % (11.5-15.5); WBC 11.8 k/uL (3.8-10.6)
[2018-12-02 08:46] LABS: Anion Gap 7 mmol/L; Blood Urea Nitrogen 20 mg/dL (9-20); Calcium 9.1 mg/dL (8.4-10.2); Carbon Dioxide 25 mmol/L (22-30); Chloride 109 mmol/L (98-107); Glucose 125 mg/dL (74-99); Potassium 4.6 mmol/L (3.5-5.1); Sodium 141 mmol/L (137-145)
[2018-12-02] MEDS: RIVAROXABAN 20 MG TAB PO SCH (10:07)
[2018-12-02] MEDS: risperiDONE 2 MG TAB PO SCH ×2 (10:07→16:38)
[2018-12-02] MEDS: SERTRALINE 25 MG TAB PO SCH (10:07)
[2018-12-02] MEDS: FUROSEMIDE 20 MG TAB PO SCH (10:07)
[2018-12-02] MEDS: ALPRAZolam 0.5 MG TAB PO SCH ×2 (11:39→16:38)
[2018-12-02] MEDS: QUEtiapine 100 MG TAB PO SCH (16:38)
[2018-12-02] MEDS: traZODone HCL 100 MG TAB PO SCH (16:38)
--- NOTE | 2018-12-02 17:06 | XR ---
EXAMINATION TYPE: XR chest 1V portable DATE OF EXAM: 12/02/2018 CLINICAL HISTORY: Chest pain TECHNIQUE: Single frontal view of the chest is obtained. COMPARISON: None FINDINGS: There is no focal air space opacity, pleural effusion, or pneumothorax seen. The cardiac silhouette size is within normal limits. The osseous structures are intact. Postsurgical changes of the thorax are unchanged. IMPRESSION: No acute process. No significant interval change.
[2018-12-02] MEDS: LEVOFLOXACIN 500MG-D5W PMX 500 MG in DEXTROSE/WATER 1 100ML.BAG IVPB SCH (17:44)
--- NOTE | 2018-12-02 20:55 | PN ---
PROGRESS NOTE I am covering for Dr. Dubois. DATE OF SERVICE: 12/02/2018. HISTORY: This 83-year-old gentleman was admitted from [facility] home with change in mental status and acute bilateral pneumonia. The patient is rather ill, possibility of aspiration was considered. Dr. Matthew saw the patient from the Pulmonary point of view. He recommended to continue the current medications. Cultures negative so far. PAST MEDICAL HISTORY: Reviewed. REVIEW OF SYSTEMS: Could not be taken. CURRENT MEDICATIONS: Reviewed, include: 1. DuoNeb q.i.d. and p.r.n. 2. Xanax 0.5 t.i.d. 3. Lasix 20 mg. 4. Levaquin 500 mg daily. 5. Narcan 0.2 every 2h p.r.n. 6. Seroquel 500 mg p.o. b.i.d. 8. Xarelto 20 mg daily. 9. Zoloft 100 mg daily. PHYSICAL EXAM: Patient is alert, oriented x3, pulse 91, blood pressure 160/80, respirations 16, temperature 97.2, pulse ox 94% on room air. HEENT: Conjunctivae normal. NECK: Supple. CARDIOVASCULAR: S1 and S2 muffled. LUNGS: Breath sounds diminished at the bases. Bilateral scattered rhonchi and crackles. ABDOMEN: Soft, nontender. EXTREMITIES: Legs, no edema. NERVOUS SYSTEM: Diffusely weak. Tone is also increased. LABS: WBC 7.2, hemoglobin 13.7. ASSESSMENT: 1. Change in mental status with acute bilateral pneumonia, possibly aspiration with acute on chronic metabolic encephalopathy. 2. Chronic dementia, type unknown. 3. Acute on chronic kidney injury, improving. 4. Chronic atrial fibrillation. 5. History of hernia repair. RECOMMENDATIONS AND DISCUSSION: This 83-year-old gentleman presented with multiple medical issues. Monitor the patient closely. Continue the current management and symptomatic treatment. Otherwise recommend Pulmonary consultation with Dr. Matthew. Abdominal and pelvic CAT scan was done which showed scarring and subsegmental atelectasis in the bases. changes also noted. Prognosis guarded. Further recommendations to follow. MMODL / IJN: [id number] / MTDD
[2018-12-03] MEDS: IPRATROPIUM-ALBUTEROL 3 ML NEB INHALATION SCH ×3 (07:41→18:56)
[2018-12-03 08:27] LABS: Basophils % (A) 0 %; Eosinophils % (A) 0 %; HCT 42.6 % (39.0-53.0); HGB 13.3 gm/dL (13.0-17.5); Lymphocytes # (A) 0.8 k/uL (1.0-4.8); Lymphocytes % (A) 5 %; MCHC 31.1 g/dL (31.0-37.0); MCV 102.7 fL (80.0-100.0); Macrocytosis Slight; Mean Platelet Volume 7.2; Monocytes # (A) 1.1 k/uL (0-1.0); Monocytes % (A) 7 %; Neutrophils # (A) 13.3 k/uL (1.3-7.7); Neutrophils % (A) 86 %; Platelet Count 251 k/uL (150-450); RBC 4.15 m/uL (4.30-5.90); RDW 13.1 % (11.5-15.5); WBC 15.6 k/uL (3.8-10.6)
[2018-12-03 08:36] LABS: Calcium 9.1 mg/dL (8.4-10.2); Potassium 4.2 mmol/L (3.5-5.1)
[2018-12-03] MEDS: SODIUM CHLORIDE 0.9% 1,000 ML IV SCH ×2 (08:38→12:59)
--- NOTE | 2018-12-03 10:16 | P.PN ---
Subjective Progress Note Date: 12/02/18 (Late entry note) Principal diagnosis: Altered mental status with agitated behavior, bilateral basal pneumonia, metabolic encephalopathy, dehydration, chronic dementia, chronic atrial fibrillation 12/02/2018, patient seen eval reexamined during the rounds is still of intermittent agitated dementia mental status remains marginal labs reviewed medications reviewed, urine culture results are pending blood culture no growth so far 83-year-old male who was seen evaluated examined on medical floor, she has been admitted to hospital with altered mental status unable to obtain it a history from the patient most of the data has been obtained from the chart, as per caregiver patient has not been feeling well was more confused with intermittent agitation and anxiety which is more than usual, patient has been admitted to Hospital for workup of altered mental status patient appeared to be dehydrated on arrival noted to have BUN/creatinine 23 and 1.31 of her renal functions have improved with gentle rehydration, chest x-ray suggestive bilateral patchy infiltrate the basis likely pneumonia computed tomography scan of the abdominal and pelvis failed to reveal any significant pathology except some BPH and lumbosacral spinal disease, computed tomography scan of the head is unremarkable Objective - Vital Signs Vital signs: Vital Signs Temp 98.9 F 12/03/18 00:00 Pulse 79 12/03/18 00:00 Resp 18 12/03/18 00:00 BP 169/54 12/03/18 00:00 Pulse Ox 99 12/03/18 00:00 Intake & Output 12/02/18 12/03/18 12/03/18 18:59 06:59 18:59 Intake Total 600 200 Balance 600 200 Intake: IV 600 200 Sodium Chloride 0.9% 1, 600 200 000 ml @ 75 mls/hr IV . [id number] [facility] Rx#:[id number] Other: Voiding Method Diaper Incontinent # Voids 2 - Exam Limitations: altered mental status General appearance: alert Head exam: Present: atraumatic, normocephalic Eye exam: Present: PERRL ENT exam: Present: mucous membranes dry Neck exam: Present: normal inspection, full ROM. Absent: tenderness Respiratory exam: Present: rhonchi. Absent: respiratory distress, wheezes, rales, stridor, chest wall tenderness, accessory muscle use, decreased breath sounds, prolonged expiratory Cardiovascular Exam: Present: regular rate, normal rhythm, normal heart sounds. Absent: systolic murmur, diastolic murmur, rubs, gallop GI/Abdominal exam: Present: soft, tenderness (There is some mild generalized tenderness without rebound or guarding), diminished bowel sounds. Absent: distended, guarding, rebound, rigid, mass Extremities exam: Present: normal inspection, normal capillary refill. Absent: pedal edema, calf tenderness Back exam: Present: normal inspection. Absent: CVA tenderness (R), CVA tenderness (L) Neurological exam: Present: alert, other (Patient is not cooperative with the neurologic exam, however there is no obvious focal deficit. The patient does appear to be moving 4 extremities.) Skin exam: Present: warm, dry, intact, normal color. Absent: rash - Labs CBC & Chem 7: 12/03/18 07:28 12/03/18 07:28 Labs: Abnormal Lab Results - Last 24 Hours (Table) 12/03/18 12/03/18 Range/Units 07:28 07:28 WBC 15.6 H (3.8-10.6) k/uL RBC 4.15 L (4.30-5.90) m/uL MCV 102.7 H (80.0-100.0) fL Neutrophils # 13.3 H (1.3-7.7) k/uL Lymphocytes # 0.8 L (1.0-4.8) k/uL Monocytes # 1.1 H (0-1.0) k/uL Chloride 110 H (98-107) mmol/L Glucose 107 H (74-99) mg/dL Microbiology - Last 24 Hours (Table) 12/01/18 17:09 Urine Culture - Preliminary Urine,Catheterized 11/30/18 18:27 Blood Culture - Preliminary Blood No Growth after 48 hours Assessment and Plan Assessment: Altered mental status with agitated behavior Bilateral basal pneumonia Metabolic encephalopathy Intravascular volume depletion and dehydration Chronic dementia and is Alzheimer's disease Chronic atrial fibrillation Plan: Broad-spectrum antibiotics Gentle rehydration Fall precautions Follow clinical course closely further recommendations pending plan of care as per clinical response of the patient Follow-up on blood and urine for culture as well Long-term prognosis overall remains poor Time with Patient: Greater than 30
--- NOTE | 2018-12-03 10:19 | P.PN ---
Subjective Progress Note Date: 12/03/18 Principal diagnosis: Altered mental status with agitated behavior, bilateral basal pneumonia, metabolic encephalopathy, dehydration, chronic dementia, chronic atrial fibrillation 12/03/2018, patient seen eval examined during the rounds clinically patient remains unchanged he still have intermittent agitated dementia, labs reviewed medications reviewed, noted white cell count have gone up however chest x-ray and culture remains negative 12/02/2018, patient seen eval reexamined during the rounds is still of intermittent agitated dementia mental status remains marginal labs reviewed medications reviewed, urine culture results are pending blood culture no growth so far 83-year-old male who was seen evaluated examined on medical floor, she has been admitted to hospital with altered mental status unable to obtain it a history from the patient most of the data has been obtained from the chart, as per caregiver patient has not been feeling well was more confused with intermittent agitation and anxiety which is more than usual, patient has been admitted to Hospital for workup of altered mental status patient appeared to be dehydrated on arrival noted to have BUN/creatinine 23 and 1.31 of her renal functions have improved with gentle rehydration, chest x-ray suggestive bilateral patchy infiltrate the basis likely pneumonia computed tomography scan of the abdominal and pelvis failed to reveal any significant pathology except some BPH and lumbosacral spinal disease, computed tomography scan of the head is unremarkable Objective - Vital Signs Vital signs: Vital Signs Temp 98.9 F 12/03/18 00:00 Pulse 79 12/03/18 00:00 Resp 18 12/03/18 00:00 BP 169/54 12/03/18 00:00 Pulse Ox 99 12/03/18 00:00 Intake & Output 12/02/18 12/03/18 12/03/18 18:59 06:59 18:59 Intake Total 600 200 Balance 600 200 Intake: IV 600 200 Sodium Chloride 0.9% 1, 600 200 000 ml @ 75 mls/hr IV . [id number] [facility] Rx#:[id number] Other: Voiding Method Diaper Incontinent # Voids 2 - Exam Limitations: altered mental status General appearance: alert Head exam: Present: atraumatic, normocephalic Eye exam: Present: PERRL ENT exam: Present: mucous membranes dry Neck exam: Present: normal inspection, full ROM. Absent: tenderness Respiratory exam: Present: rhonchi. Absent: respiratory distress, wheezes, rales, stridor, chest wall tenderness, accessory muscle use, decreased breath sounds, prolonged expiratory Cardiovascular Exam: Present: regular rate, normal rhythm, normal heart sounds. Absent: systolic murmur, diastolic murmur, rubs, gallop GI/Abdominal exam: Present: soft, tenderness (There is some mild generalized tenderness without rebound or guarding), diminished bowel sounds. Absent: distended, guarding, rebound, rigid, mass Extremities exam: Present: normal inspection, normal capillary refill. Absent: pedal edema, calf tenderness Back exam: Present: normal inspection. Absent: CVA tenderness (R), CVA tenderness (L) Neurological exam: Present: alert, other (Patient is not cooperative with the neurologic exam, however there is no obvious focal deficit. The patient does appear to be moving 4 extremities.) Skin exam: Present: warm, dry, intact, normal color. Absent: rash - Labs CBC & Chem 7: 12/03/18 07:28 12/03/18 07:28 Labs: Abnormal Lab Results - Last 24 Hours (Table) 12/03/18 12/03/18 Range/Units 07:28 07:28 WBC 15.6 H (3.8-10.6) k/uL RBC 4.15 L (4.30-5.90) m/uL MCV 102.7 H (80.0-100.0) fL Neutrophils # 13.3 H (1.3-7.7) k/uL Lymphocytes # 0.8 L (1.0-4.8) k/uL Monocytes # 1.1 H (0-1.0) k/uL Chloride 110 H (98-107) mmol/L Glucose 107 H (74-99) mg/dL Microbiology - Last 24 Hours (Table) 12/01/18 17:09 Urine Culture - Preliminary Urine,Catheterized 11/30/18 18:27 Blood Culture - Preliminary Blood No Growth after 48 hours Assessment and Plan Assessment: Altered mental status with agitated behavior Bilateral basal pneumonia Metabolic encephalopathy Intravascular volume depletion and dehydration Chronic dementia and is Alzheimer's disease Chronic atrial fibrillation Plan: Broad-spectrum antibiotics Gentle rehydration Consider infectious disease consultation if the WBC continued to climb up as there is no source of infection appreciated currently except pneumonia for which x-ray reviewed which are remains stable Fall precautions Follow clinical course closely further recommendations pending plan of care as per clinical response of the patient Follow-up on blood and urine for culture as well Long-term prognosis overall remains poor Time with Patient: Greater than 30
[2018-12-03] MEDS: risperiDONE 2 MG TAB PO SCH ×2 (12:00→18:08)
[2018-12-03] MEDS: RIVAROXABAN 20 MG TAB PO SCH (12:00)
[2018-12-03] MEDS: SERTRALINE 25 MG TAB PO SCH (12:01)
[2018-12-03] MEDS: FUROSEMIDE 20 MG TAB PO SCH (12:04)
[2018-12-03] MEDS: ALPRAZolam 0.5 MG TAB PO SCH ×2 (12:04→18:08)
[2018-12-03] MEDS: LEVOFLOXACIN 500MG-D5W PMX 500 MG in DEXTROSE/WATER 1 100ML.BAG IVPB SCH (17:44)
[2018-12-03] MEDS: QUEtiapine 100 MG TAB PO SCH (18:08)
[2018-12-03] MEDS: traZODone HCL 100 MG TAB PO SCH (18:08)
[2018-12-03] MEDS: PIPERACILLIN-TAZOBACTAM 3.375 GM in SODIUM CHLORIDE 0.9% 100 ML IVPB SCH (19:32)
--- NOTE | 2018-12-03 19:38 | PN ---
PROGRESS NOTE DATE OF SERVICE: 12/03/2018 I am covering for Dr. Dubois This 83-year-old gentleman admitted with change in mental status, also with possible pneumonia. Dr. Matthew is following the patient. On broad-spectrum IV antibiotics. Aspiration suspected. The most recent chest CT did not show any acute changes. EXAM: Patient is confused. Pulse 92, blood pressure 119/60, respirations 16, T-max 100.2, pulse ox 94% on room air. HEENT: Conjunctivae normal. Oral mucosa moist. NECK: No jugular venous distention. No lymph node enlargement. CARDIOVASCULAR: S1, S2. RESPIRATORY: Diminished breath sounds muffled at the bases. Bilateral scattered rhonchi and crackles. ABDOMEN: Soft, nontender. No mass. LEGS: No swelling. NERVOUS SYSTEM: Diffusely weak. LABS: WBC 15.2, hemoglobin is 13.3, sodium 140, potassium 4.2. ASSESSMENT: 1. Change in mental status with acute bilateral pneumonia possibly aspiration with acute on chronic metabolic encephalopathy. 2. Continued fever. 3. Rule out aspiration dysphagia. 4. Chronic dementia, type unknown. 5. Acute on chronic kidney injury, improving. 6. Chronic atrial fibrillation. 7. History of hernia repair. RECOMMENDATIONS: Continue current management. continue to monitor, continue symptomatic treatment. Recommend add Zosyn to the current regimen. Closely follow with Pulmonary. Continue the bronchodilators. Guarded prognosis because of multiple complex medical issues. Further recommendations to follow. MMODL / IJN: [id number] /
[2018-12-04] MEDS: PIPERACILLIN-TAZOBACTAM 3.375 GM in SODIUM CHLORIDE 0.9% 100 ML IVPB SCH ×3 (03:08→15:31)
[2018-12-04] MEDS: IPRATROPIUM-ALBUTEROL 3 ML NEB INHALATION SCH ×2 (08:38→21:00)
[2018-12-04 09:37] LABS: Basophils % (A) 0 %; Eosinophils # (A) 0.1 k/uL (0-0.7); Eosinophils % (A) 1 %; HCT 40.8 % (39.0-53.0); HGB 12.9 gm/dL (13.0-17.5); Lymphocytes % (A) 10 %; MCH 32.5 pg (25.0-35.0); MCHC 31.6 g/dL (31.0-37.0); MCV 102.9 fL (80.0-100.0); Macrocytosis Slight; Mean Platelet Volume 7.1; Monocytes # (A) 0.7 k/uL (0-1.0); Monocytes % (A) 7 %; Neutrophils % (A) 80 %; Platelet Count 243 k/uL (150-450); RBC 3.97 m/uL (4.30-5.90); RDW 13.1 % (11.5-15.5)
[2018-12-04 09:39] LABS: Anion Gap 6 mmol/L; Blood Urea Nitrogen 20 mg/dL (9-20); Calcium 8.8 mg/dL (8.4-10.2); Carbon Dioxide 26 mmol/L (22-30); Chloride 110 mmol/L (98-107); Glucose 100 mg/dL (74-99); Potassium 3.6 mmol/L (3.5-5.1); Sodium 142 mmol/L (137-145)
[2018-12-04] MEDS: SODIUM CHLORIDE 0.9% 1,000 ML IV SCH ×2 (11:18→21:51)
[2018-12-04] MEDS: risperiDONE 2 MG TAB PO SCH ×2 (11:18→17:59)
[2018-12-04] MEDS: FUROSEMIDE 20 MG TAB PO SCH (11:18)
[2018-12-04] MEDS: RIVAROXABAN 20 MG TAB PO SCH (11:19)
[2018-12-04] MEDS: SERTRALINE 25 MG TAB PO SCH (11:19)
--- NOTE | 2018-12-04 12:51 | P.PN ---
Subjective Progress Note Date: 12/04/18 Principal diagnosis: Altered mental status with agitated behavior, bilateral basal pneumonia, metabolic encephalopathy, dehydration, chronic dementia, chronic atrial fibrillation 12/04/2018, patient seen eval examined during rounds clinically patient has been doing much better in terms of breathing cuff congestion shortness breath is improved patient is more calm and less combative, white cell count is down to within normal range, renal functions are normal, 12/03/2018, patient seen eval examined during the rounds clinically patient remains unchanged he still have intermittent agitated dementia, labs reviewed medications reviewed, noted white cell count have gone up however chest x-ray and culture remains negative, patient is being treated with broad-spectrum antibiotics, x-ray however remains stable 12/02/2018, patient seen eval reexamined during the rounds is still of intermittent agitated dementia mental status remains marginal labs reviewed medications reviewed, urine culture results are pending blood culture no growth so far 83-year-old male who was seen evaluated examined on medical floor, she has been admitted to hospital with altered mental status unable to obtain it a history from the patient most of the data has been obtained from the chart, as per caregiver patient has not been feeling well was more confused with intermittent agitation and anxiety which is more than usual, patient has been admitted to Hospital for workup of altered mental status patient appeared to be dehydrated on arrival noted to have BUN/creatinine 23 and 1.31 of her renal functions have improved with gentle rehydration, chest x-ray suggestive bilateral patchy infiltrate the basis likely pneumonia computed tomography scan of the abdominal and pelvis failed to reveal any significant pathology except some BPH and lumbosacral spinal disease, computed tomography scan of the head is unremarkable Objective - Vital Signs Vital signs: Vital Signs Temp 98.4 F 12/04/18 07:22 Pulse 84 12/04/18 07:22 Resp 16 12/04/18 07:22 BP 153/77 12/04/18 07:22 Pulse Ox 99 12/04/18 07:22 Intake & Output 12/03/18 12/04/18 12/04/18 18:59 06:59 18:59 Intake Total 607.5 1200 Balance 607.5 1200 Intake: IV 487.5 1200 Sodium Chloride 0.9% 1, 487.5 1200 000 ml @ 75 mls/hr IV . [id number] [facility] Rx#:[id number] Oral 120 Other: Voiding Method Diaper Diaper Incontinent Incontinent # Voids 1 3 - Exam Limitations: altered mental status General appearance: alert Head exam: Present: atraumatic, normocephalic Eye exam: Present: PERRL ENT exam: Present: mucous membranes dry Neck exam: Present: normal inspection, full ROM. Absent: tenderness Respiratory exam: Present: rhonchi. Absent: respiratory distress, wheezes, rales, stridor, chest wall tenderness, accessory muscle use, decreased breath sounds, prolonged expiratory Cardiovascular Exam: Present: regular rate, normal rhythm, normal heart sounds. Absent: systolic murmur, diastolic murmur, rubs, gallop GI/Abdominal exam: Present: soft, tenderness (There is some mild generalized tenderness without rebound or guarding), diminished bowel sounds. Absent: distended, guarding, rebound, rigid, mass Extremities exam: Present: normal inspection, normal capillary refill. Absent: pedal edema, calf tenderness Back exam: Present: normal inspection. Absent: CVA tenderness (R), CVA tenderness (L) Neurological exam: Present: alert, other (Patient is not cooperative with the neurologic exam, however there is no obvious focal deficit. The patient does appear to be moving 4 extremities.) Skin exam: Present: warm, dry, intact, normal color. Absent: rash - Labs CBC & Chem 7: 12/04/18 08:39 12/04/18 08:39 Labs: Abnormal Lab Results - Last 24 Hours (Table) 12/04/18 12/04/18 Range/Units 08:39 08:39 RBC 3.97 L (4.30-5.90) m/uL Hgb 12.9 L (13.0-17.5) gm/dL MCV 102.9 H (80.0-100.0) fL Neutrophils # 8.0 H (1.3-7.7) k/uL Chloride 110 H (98-107) mmol/L Glucose 100 H (74-99) mg/dL Microbiology - Last 24 Hours (Table) 11/30/18 18:27 Blood Culture - Preliminary Blood No Growth after 72 hours 12/01/18 17:09 Urine Culture - Final Urine,Catheterized Assessment and Plan Assessment: Altered mental status with agitated behavior Bilateral basal pneumonia likely aspiration related Metabolic encephalopathy Intravascular volume depletion and dehydration Chronic dementia and is Alzheimer's disease Chronic atrial fibrillation Plan: Broad-spectrum antibiotics Gentle rehydration Continue supportive care follow clinical course closely Fall precautions Follow clinical course closely further recommendations pending plan of care as per clinical response of the patient Follow-up on blood and urine for culture as well Long-term prognosis overall remains poor Time with Patient: Greater than 30
[2018-12-04] MEDS: DEXTROSE 5%-0.45% NACL 1,000 ML IV SCH (13:20)
[2018-12-04] MEDS: ALPRAZolam 0.5 MG TAB PO SCH ×3 (13:20→18:03)
[2018-12-04] MEDS: traZODone HCL 100 MG TAB PO SCH (17:59)
[2018-12-04] MEDS: QUEtiapine 100 MG TAB PO SCH (17:59)
[2018-12-04] MEDS: LEVOFLOXACIN 500MG-D5W PMX 500 MG in DEXTROSE/WATER 1 100ML.BAG IVPB SCH (19:15)
[2018-12-04] MEDS ORDERED: risperiDONE 0.25 MG TAB PO STA (22:44)
[2018-12-05] MEDS: PIPERACILLIN-TAZOBACTAM 3.375 GM in SODIUM CHLORIDE 0.9% 100 ML IVPB SCH ×3 (00:09→18:39)
[2018-12-05] MEDS: DEXTROSE 5%-0.45% NACL 1,000 ML IV SCH ×2 (03:21→16:45)
[2018-12-05] MEDS: IPRATROPIUM-ALBUTEROL 3 ML NEB INHALATION SCH ×3 (07:48→19:18)
[2018-12-05 09:04] LABS: Basophils % (A) 0 %; Eosinophils # (A) 0.1 k/uL (0-0.7); Eosinophils % (A) 1 %; HCT 38.5 % (39.0-53.0); HGB 12.5 gm/dL (13.0-17.5); Lymphocytes # (A) 1.1 k/uL (1.0-4.8); Lymphocytes % (A) 12 %; MCH 33.4 pg (25.0-35.0); MCHC 32.5 g/dL (31.0-37.0); MCV 102.8 fL (80.0-100.0); Macrocytosis Slight; Mean Platelet Volume 7.5; Monocytes # (A) 0.6 k/uL (0-1.0); Monocytes % (A) 7 %; Neutrophils # (A) 7.2 k/uL (1.3-7.7); Neutrophils % (A) 79 %; Platelet Count 233 k/uL (150-450); RBC 3.75 m/uL (4.30-5.90); RDW 12.9 % (11.5-15.5); WBC 9.2 k/uL (3.8-10.6)
[2018-12-05 09:15] LABS: Calcium 8.6 mg/dL (8.4-10.2); Potassium 3.7 mmol/L (3.5-5.1)
[2018-12-05] MEDS ORDERED: ALPRAZolam 0.25 MG TAB PO PRN (11:41)
--- NOTE | 2018-12-05 13:56 | P.PN ---
Subjective Progress Note Date: 12/05/18 Principal diagnosis: Altered mental status with agitated behavior, bilateral basal pneumonia, metabolic encephalopathy, dehydration, chronic dementia, chronic atrial fibrillation 12/05/2018, patient seen eval reexamined during the rounds clinically over noted significant change patient oxygen saturation remained stable 94% on room air labs and medications reviewed from today, urine and blood cultures have been negative leukocytosis have resolved, patient remains on Levaquin and Zosyn , patient is being eval for swallowing dysfunction by primary service, last chest x-ray however remains stable 12/04/2018, patient seen eval examined during rounds clinically patient has been doing much better in terms of breathing cuff congestion shortness breath is improved patient is more calm and less combative, white cell count is down to within normal range, renal functions are normal, 12/03/2018, patient seen eval examined during the rounds clinically patient remains unchanged he still have intermittent agitated dementia, labs reviewed medications reviewed, noted white cell count have gone up however chest x-ray and culture remains negative, patient is being treated with broad-spectrum antibiotics, x-ray however remains stable 12/02/2018, patient seen eval reexamined during the rounds is still of intermittent agitated dementia mental status remains marginal labs reviewed medications reviewed, urine culture results are pending blood culture no growth so far 83-year-old male who was seen evaluated examined on medical floor, she has been admitted to hospital with altered mental status unable to obtain it a history from the patient most of the data has been obtained from the chart, as per caregiver patient has not been feeling well was more confused with intermittent agitation and anxiety which is more than usual, patient has been admitted to Hospital for workup of altered mental status patient appeared to be dehydrated on arrival noted to have BUN/creatinine 23 and 1.31 of her renal functions have improved with gentle rehydration, chest x-ray suggestive bilateral patchy infiltrate the basis likely pneumonia computed tomography scan of the abdominal and pelvis failed to reveal any significant pathology except some BPH and lumbosacral spinal disease, computed tomography scan of the head is unremarkable Objective - Vital Signs Vital signs: Vital Signs Temp 98.9 F 12/04/18 23:15 Pulse 84 12/05/18 13:39 Resp 18 12/04/18 23:15 BP 169/87 12/04/18 23:15 Pulse Ox 94 L 12/05/18 07:48 Intake & Output 12/04/18 12/05/18 12/05/18 18:59 06:59 18:59 Intake Total 1300 Balance 1300 Intake: IV 600 Sodium Chloride 0.9% 1, 600 000 ml @ 75 mls/hr IV . [id number] [facility] Rx#:[id number] Intake, IV Titration 700 Amount Dextrose 5%-0.45% NaCl 1, 600 000 ml @ 75 mls/hr IV . [id number] [facility] Rx#:[id number] Piperacillin-Tazobactam 3 100 .375 gm In Sodium Chloride 0.9% 100 ml @ 25 mls/hr IVPB Q8HR [facility] Rx# :[id number] Other: Voiding Method Diaper Diaper Incontinent Incontinent # Voids 2 - Exam Limitations: altered mental status General appearance: alert, intermittent D awake agitated behavior however has improved compared to prior exam Head exam: Present: atraumatic, normocephalic Eye exam: Present: PERRL ENT exam: Present: mucous membranes moist Neck exam: Present: normal inspection, full ROM. Absent: tenderness Respiratory exam: Clear to auscultation bilaterally Cardiovascular Exam: Present: regular rate, normal rhythm, normal heart sounds. Absent: systolic murmur, diastolic murmur, rubs, gallop GI/Abdominal exam: Present: soft, tenderness (There is some mild generalized tenderness without rebound or guarding), diminished bowel sounds. Absent: distended, guarding, rebound, rigid, mass Extremities exam: Present: normal inspection, normal capillary refill. Absent: pedal edema, calf tenderness Back exam: Present: normal inspection. Absent: CVA tenderness (R), CVA tenderness (L) Neurological exam: Present: alert, other (Patient is not cooperative with the neurologic exam, however there is no obvious focal deficit. The patient does appear to be moving 4 extremities.) Skin exam: Present: warm, dry, intact, normal color. Absent: rash - Labs CBC & Chem 7: 12/05/18 08:19 12/05/18 08:19 Labs: Abnormal Lab Results - Last 24 Hours (Table) 12/05/18 12/05/18 Range/Units 08:19 08:19 RBC 3.75 L (4.30-5.90) m/uL Hgb 12.5 L (13.0-17.5) gm/dL Hct 38.5 L (39.0-53.0) % MCV 102.8 H (80.0-100.0) fL Chloride 111 H (98-107) mmol/L Glucose 125 H (74-99) mg/dL Microbiology - Last 24 Hours (Table) 11/30/18 18:27 Blood Culture - Preliminary Blood No Growth after 96 hours Assessment and Plan Assessment: Altered mental status with agitated behavior Bilateral basal pneumonia likely aspiration related/healthcare associated pneumonia Metabolic encephalopathy Intravascular volume depletion and dehydration Chronic dementia and is Alzheimer's disease Chronic atrial fibrillation, anticoagulation is on hold as patient is being evaluated if safe for swallow Plan: Broad-spectrum antibiotics Gentle rehydration Continue supportive care follow clinical course closely Fall precautions Follow clinical course closely further recommendations pending plan of care as per clinical response of the patient Follow-up on blood and urine for culture as well Long-term prognosis overall remains poor Time with Patient: Greater than 30
[2018-12-05] MEDS: FUROSEMIDE 20 MG TAB PO SCH (14:33)
[2018-12-05] MEDS: RIVAROXABAN 20 MG TAB PO SCH (14:33)
[2018-12-05] MEDS: SERTRALINE 25 MG TAB PO SCH (14:33)
[2018-12-05] MEDS: LEVOFLOXACIN 500MG-D5W PMX 500 MG in DEXTROSE/WATER 1 100ML.BAG IVPB SCH (16:50)
[2018-12-05] MEDS: risperiDONE 2 MG TAB PO SCH (17:16)
[2018-12-05] MEDS: QUEtiapine 100 MG TAB PO SCH (18:38)
[2018-12-05] MEDS: traZODone HCL 100 MG TAB PO SCH (18:38)
[2018-12-05] MEDS: SODIUM CHLORIDE 0.9% 1,000 ML IV SCH (20:52)
[2018-12-06] MEDS: PIPERACILLIN-TAZOBACTAM 3.375 GM in SODIUM CHLORIDE 0.9% 100 ML IVPB SCH ×2 (00:19→08:49)
[2018-12-06] MEDS: DEXTROSE 5%-0.45% NACL 1,000 ML IV SCH (04:57)
[2018-12-06] MEDS: IPRATROPIUM-ALBUTEROL 3 ML NEB INHALATION SCH ×2 (07:39→13:04)
[2018-12-06] MEDS: RIVAROXABAN 20 MG TAB PO SCH (08:45)
[2018-12-06] MEDS: SERTRALINE 25 MG TAB PO SCH (08:45)
[2018-12-06] MEDS: FUROSEMIDE 20 MG TAB PO SCH (08:45)
--- NOTE | 2018-12-06 14:15 | P.PN ---
Subjective Progress Note Date: 12/04/18 Principal diagnosis: Altered mental status Interval history: This is an 83-year-old male resident of an [facility], admitted with possible acute bilateral pneumonia, acute on chronic metabolic encephalopathy, acute on chronic renal failure in a patient with history of dementia and multiple other medical issues. chest x-ray suggestive bilateral patchy infiltrate the basis likely pneumonia computed tomography scan of the abdominal and pelvis failed to reveal any significant pathology except some BPH and lumbosacral spinal disease, computed tomography scan of the head is unremarkable. Maintained on broad-spectrum IV antibiotics, nebulized bronchodilators. 12/04/2018 Patient is awake alert but could not provide any history at this time. Currently being treated with antibiotics in the home of Levaquin and Zosyn for possible aspiration pneumonia. No fever no chills. Otherwise patient is very lethargic. No other acute overnight issues. No nausea vomiting. Current medications reviewed Objective - Vital Signs Vital signs: Vital Signs Temp 98.9 F 12/04/18 23:15 Pulse 80 12/05/18 08:02 Resp 18 12/04/18 23:15 BP 169/87 12/04/18 23:15 Pulse Ox 94 L 12/05/18 07:48 Intake & Output 12/04/18 12/05/18 12/05/18 18:59 06:59 18:59 Intake Total 1300 Balance 1300 Intake: IV 600 Sodium Chloride 0.9% 1, 600 000 ml @ 75 mls/hr IV . [id number] [facility] Rx#:[id number] Intake, IV Titration 700 Amount Dextrose 5%-0.45% NaCl 1, 600 000 ml @ 75 mls/hr IV . [id number] [facility] Rx#:[id number] Piperacillin-Tazobactam 3 100 .375 gm In Sodium Chloride 0.9% 100 ml @ 25 mls/hr IVPB Q8HR [facility] Rx# :[id number] Other: Voiding Method Diaper Diaper Incontinent Incontinent # Voids 2 - Exam PHYSICAL EXAM: VITAL SIGNS: As above GENERAL: Lying in bed, appears comfortable with no acute distress, confused, cooperative HEENT: Conjunctivae normal. eyes normal. NECK: No JVD. No thyroid enlargement. No LNs CARDIOVASCULAR: S1, S2 muffled. No murmur RESPIRATION: Breath sounds diminished in the bases. Occasional scattered rhonchi and crackles. ABDOMEN: Soft, nontender . No guarding. no masses palpable.Bowel sounds heard. LEGS: No edema. no swelling PSYCHIATRY: Alert and oriented -3, mood and affect normal. NERVOUS SYSTEM: Moves all 4 limbs. Diffuse weakness No focal deficits. Skin: no rash - Labs CBC & Chem 7: 12/05/18 08:19 12/05/18 08:19 Labs: Abnormal Lab Results - Last 24 Hours (Table) 12/05/18 12/05/18 Range/Units 08:19 08:19 RBC 3.75 L (4.30-5.90) m/uL Hgb 12.5 L (13.0-17.5) gm/dL Hct 38.5 L (39.0-53.0) % MCV 102.8 H (80.0-100.0) fL Chloride 111 H (98-107) mmol/L Glucose 125 H (74-99) mg/dL Microbiology - Last 24 Hours (Table) 11/30/18 18:27 Blood Culture - Preliminary Blood No Growth after 96 hours Assessment and Plan Assessment: -Change in mental status with acute bilateral pneumonia, community-acquired with possible aspiration - acute on chronic metabolic encephalopathy -Dementia, type unknown -Acute on chronic kidney disease, stage III, improving. -Chronic atrial fibrillation -DVT prophylaxis Plan: Continue current medication regime ,monitoring and symptomatic treatment. Urine culture ordered. Continue on IV antibiotics, gentle IV fluid hydration. Assist with all meals. Follow closely with pulmonary. Further recommendations to follow. Time with Patient: Greater than 30
--- NOTE | 2018-12-06 14:18 | P.PN ---
Subjective Progress Note Date: 12/05/18 Principal diagnosis: Altered mental status Interval history: This is an 83-year-old male resident of an [facility], admitted with possible acute bilateral pneumonia, acute on chronic metabolic encephalopathy, acute on chronic renal failure in a patient with history of dementia and multiple other medical issues. chest x-ray suggestive bilateral patchy infiltrate the basis likely pneumonia computed tomography scan of the abdominal and pelvis failed to reveal any significant pathology except some BPH and lumbosacral spinal disease, computed tomography scan of the head is unremarkable. Maintained on broad-spectrum IV antibiotics, nebulized bronchodilators. 12/04/2018 Patient is awake alert but could not provide any history at this time. Currently being treated with antibiotics in the home of Levaquin and Zosyn for possible aspiration pneumonia. No fever no chills. Otherwise patient is very lethargic. No other acute overnight issues. No nausea vomiting. 12/05/2018 Patient is breathing comfortably but unable to arouse at this time. Patient is sleepy all night and in the morning. Was unable to eat today. Risperdal has been discontinued. Will hold benzodiazepines as well. Otherwise no fever no chills. Hemodynamically stable. Patient was trying to get her to the bed last night and received 0.25 mg of Risperdal by mouth. Current medications reviewed Objective - Vital Signs Vital signs: Vital Signs Temp 98.9 F 12/04/18 23:15 Pulse 84 12/05/18 13:39 Resp 18 12/04/18 23:15 BP 169/87 12/04/18 23:15 Pulse Ox 94 L 12/05/18 07:48 Intake & Output 12/04/18 12/05/18 12/05/18 18:59 06:59 18:59 Intake Total 1300 Balance 1300 Intake: IV 600 Sodium Chloride 0.9% 1, 600 000 ml @ 75 mls/hr IV . [id number] [facility] Rx#:[id number] Intake, IV Titration 700 Amount Dextrose 5%-0.45% NaCl 1, 600 000 ml @ 75 mls/hr IV . [id number] [facility] Rx#:[id number] Piperacillin-Tazobactam 3 100 .375 gm In Sodium Chloride 0.9% 100 ml @ 25 mls/hr IVPB Q8HR [facility] Rx# :[id number] Other: Voiding Method Diaper Diaper Incontinent Incontinent # Voids 2 - Exam PHYSICAL EXAM: VITAL SIGNS: As above GENERAL: Lying in bed, appears comfortable with no acute distress, confused, cooperative HEENT: Conjunctivae normal. eyes normal. NECK: No JVD. No thyroid enlargement. No LNs CARDIOVASCULAR: S1, S2 muffled. No murmur RESPIRATION: Breath sounds diminished in the bases. Occasional scattered rhonchi and crackles. ABDOMEN: Soft, nontender . No guarding. no masses palpable.Bowel sounds heard. LEGS: No edema. no swelling PSYCHIATRY: Alert and oriented -3, mood and affect normal. NERVOUS SYSTEM: Moves all 4 limbs. Diffuse weakness No focal deficits. Skin: no rash - Labs CBC & Chem 7: 12/05/18 08:19 12/05/18 08:19 Labs: Abnormal Lab Results - Last 24 Hours (Table) 12/05/18 12/05/18 Range/Units 08:19 08:19 RBC 3.75 L (4.30-5.90) m/uL Hgb 12.5 L (13.0-17.5) gm/dL Hct 38.5 L (39.0-53.0) % MCV 102.8 H (80.0-100.0) fL Chloride 111 H (98-107) mmol/L Glucose 125 H (74-99) mg/dL Microbiology - Last 24 Hours (Table) 11/30/18 18:27 Blood Culture - Preliminary Blood No Growth after 96 hours Assessment and Plan Assessment: -Change in mental status with acute bilateral pneumonia, community-acquired with possible aspiration - acute on chronic metabolic encephalopathy due to infection and medications. -Dementia, type unknown -Acute on chronic kidney disease, stage III, improving. -Chronic atrial fibrillation -DVT prophylaxis Plan: Continue current medication regime ,monitoring and symptomatic treatment. Urine culture no growth. Continue on IV antibiotics, gentle IV fluid hydration. Assist with all meals. Follow closely with pulmonary. Further recommendations to follow.
[2018-12-06 16:17] VITALS: BP 139/60; PULSE 89; RESP 12; TEMP 98.5
[2018-12-06] MEDS ORDERED: FLUCONAZOLE 100 MG TAB PO ONE (18:06)
--- NOTE | 2018-12-06 19:25 | P.DS ---
Providers Date of admission: 11/30/18 03:25 Expected date of discharge: 12/06/18 Attending physician: Namita Pace Consults: 11/30/18 18:15 Consult Physician Routine Consulting Provider: Baldo Matthew Consult Reason/Comments: pneumonia Do you want consulting provider notified?: Yes Primary care physician: Goran Dubois Patient Condition at Discharge: Fair Plan - Discharge Summary Discharge Rx Participant: No New Discharge Prescriptions: New risperiDONE 0.25 mg PO HS PRN #30 tablet PRN Reason: Agitation Amoxic-Pot Clav 600-42.9MG/5Ml [Augmentin 600-42.9 mg/5 ml Liquid] 5 ml PO Q12H 7 Days #70 ml Fluconazole [Diflucan] 100 mg PO DAILY 6 Days #6 tablet Continue traZODone HCL [Desyrel] 200 mg PO HS@1700 Sertraline [Zoloft] 25 mg PO DAILY@0800 QUEtiapine [SEROquel] 100 mg PO HS@1700 Furosemide [Lasix] 20 mg PO DAILY@0800 Rivaroxaban [Xarelto] 20 mg PO DAILY@0800 Discontinued risperiDONE [RisperDAL] 5 mg PO BID@0800,1700 ALPRAZolam [Xanax] 0.5 mg PO BID@1200,1700 Discharge Medication List Furosemide [Lasix] 20 mg PO DAILY@0800 11/29/18 [History] QUEtiapine [SEROquel] 100 mg PO HS@1700 11/29/18 [History] Rivaroxaban [Xarelto] 20 mg PO DAILY@0800 11/29/18 [History] Sertraline [Zoloft] 25 mg PO DAILY@0800 11/29/18 [History] traZODone HCL [Desyrel] 200 mg PO HS@1700 11/29/18 [History] Amoxic-Pot Clav 600-42.9MG/5Ml [Augmentin 600-42.9 mg/5 ml Liquid] 5 ml PO Q12H 7 Days #70 ml 12/06/18 [Rx] Fluconazole [Diflucan] 100 mg PO DAILY 6 Days #6 tablet 12/06/18 [Rx] risperiDONE 0.25 mg PO HS PRN #30 tablet 12/06/18 [Rx] Follow up Appointment(s)/Referral(s): Goran Dubois MD [Primary Care Provider] - 1-2 days (CALL OFFICE TO SCHEDULE APPOINTMENT, OFFICE CLOSED AT TIME OF DISCHARGE.) Baldo Matthew MD [STAFF PHYSICIAN] - 1 Week (CALL OFFICE TO SCHEDULE APPOINTMENT, OFFICE CLOSED AT TIME OF DISCHARGE.) Patient Instructions/Handouts: Bacterial Pneumonia (DC) Activity/Diet/Wound Care/Special Instructions: DR. PETERS TO E-SCRIBE TO [facility] DIFLUCAN RX AUGMENTIN SUSPENSION 500MG ORAL TWICE DAILY FOR [address] MATTHEW RECOMMENDATION. Discharge Disposition: TRANSFER TO SNF/ECF
== END 2018-12-06 18:30 | disposition home or self-care (01) | DRG 177 ==
LOC: EEVIPCON 21:54 → EC 21:54 → SUPCPDRO 21:54 → 4SSUR 11-30 03:25
PROVIDERS: ADMIT Hospitalist; ATTEND Hospitalist
DX: J69.0 Pneumonitis due to inhalation of food and vomit (principal); G93.41 Metabolic encephalopathy; F02.81 Dementia in other diseases classified elsewhere, unspecified severity, with behavioral disturbance; N17.9 Acute kidney failure, unspecified; J98.11 Atelectasis; I48.2 Chronic atrial fibrillation; E86.0 Dehydration; G30.9 Alzheimer's disease, unspecified; N18.3 Chronic kidney disease, stage 3 (moderate); Z79.01 Long term (current) use of anticoagulants; Z79.899 Other long term (current) drug therapy; Z88.1 Allergy status to other antibiotic agents; Z88.8 Allergy status to other drugs, medicaments and biological substances
CPT/HCPCS: 36415; 70450; 71045; 71046; 74176; 80048; 80053; 80306; 81003; 82550; 82553; 83605; 84484; 85025; 85610; 85730; 87040; 87086; 93005; 94640; 94760; 96360; 99285